=== PATIENT | male | born 1995 | race Caucasian/White ===

== ENCOUNTER 2016-12-09 10:50 | Emergency (ER) | payer MEDICAID, OTHER ==
--- NOTE | 2016-12-09 11:40 | EDM.PDOC ---
ED HPI GENERAL MEDICAL PROBLEM - General Chief Complaint: Genitourinary Problem Stated Complaint: Rash to groin Time Seen by Provider: 12/09/16 11:11 - History of Present Illness INITIAL COMMENTS - FREE TEXT/NARRATIVE: HISTORY AND PHYSICAL: History of present illness: The patient is a healthy 21-year-old male who presents with a three-day history of having a rash on the shaft of his penis and at the base which initially was not painful but now seems more uncomfortable and tender. According to the patient has had no systemic complaints of fever chills abdominal pain nausea or vomiting and has had no penile discharge no testicular swelling and no dysuria frequency urgency or hematuria. The patient states he's currently with his girlfriend only 4 months and has only had one prior partner. Patient says he always uses condoms for protection. The patient says he initially noticed the rash on visual inspection and it was located on the left side of the shaft of the penis and it seemed more red and flat-like in character. The rash seemed to spread around the shaft of the penis and he noticed some small bumps at the base of the penis. Patient says that he works on the [employer] and has to wear a lot of equipment and wears boxer shorts instead of briefs on a regular basis. Patient says he is not sure if his current girlfriend has any other partners and she has not had any issues that he is aware of. The patient does not shave his inguinal hair Review of systems: As per history of present illness and below otherwise all systems reviewed and negative. Past medical history: As per history of present illness and as reviewed below otherwise noncontributory. Surgical history: As per history of present illness and as reviewed below otherwise noncontributory. Social history: No reported history of drug or alcohol abuse. Family history: As per history of present illness and as reviewed below otherwise noncontributory. Physical exam: General: Well-developed well-nourished male who is nontoxic and benefits of the note by me HEENT: Atraumatic, normocephalic, negative for conjunctival pallor or scleral icterus, mucous membranes moist, throat clear, neck supple, nontender, trachea midline. Lungs: Clear to auscultation, breath sounds equal bilaterally, chest nontender. Heart: S1S2, regular, negative for clicks, rubs, or JVD. Abdomen: Soft, nondistended, nontender. Negative for masses or hepatosplenomegaly. Negative for costovertebral tenderness. Pelvis: Stable nontender. Genitourinary: Testicles are descended bilaterally and there is no evidence of any tenderness or swelling. There is bilateral inguinal adenopathy which is nontender and mobile left greater than right. There is a very flat plaque-like erythematous rash/maculopapular rash seen on the mid shaft of the penis circumferentially which does not exhibit any confluence. More at the base of the penis there are several punctate areas of pustule seen that are not definitely vesicular in character and there is no drainage or fluid that can be extracted. There are no flat like ulcerative lesions appreciated. The area in general is minimally tender and there are no masses appreciated. There is no penile drainage appreciated Rectal: Deferred. Extremities: Atraumatic, negative for cords or calf pain. Neurovascular unremarkable. Neuro: Awake, alert, oriented. Cranial nerves II through XII unremarkable. Cerebellum unremarkable. Motor and sensory unremarkable throughout. Exam nonfocal. Diagnostics: Urine for gonorrhea and Chlamydia Therapeutics: [] The patient and I talked at length about the character of this rash and that it seemed to be more attributed to sweating and boxer usage as well as a yeast like character. The small several pustules I see do not look herpetic-like/ vesicular in character but in light of his new partner and his concerns I will go ahead and give him a course of antiviral treatment and recommended that he followup for further testing for this possibility. There are no pustules that have enough fluid that can be extracted for topical testing and he is aware of this. I've advised him to wear tight briefs while at work and will also give him nystatin powder to keep the area more clean and dry in hopes to eradicate the rash. I will give him followup with family practice in urology to continue this workup as an outpatient. Impression: Inguinal/penile rash Definitive disposition and diagnosis as appropriate pending reevaluation and review of above. genitail region Pain Score (Numeric/FACES): 8 - Related Data Allergies Allergy/AdvReac Type Severity Reaction Status Date / Time No Known Allergies Allergy Verified 12/09/16 10:57 Home Meds: Home Meds . [No Known Home Meds] 07/16/16 [History] Past Medical History - Past Health History Medical/Surgical History: Denies Medical/Surgical History Neurological History: Reports: Other (see below) Other Neuro History: h/o ADHD, Autism Psychiatric History: Reports: None - Infectious Disease History Infectious Disease History: Reports: None Social & Family History - Family History Family Medical History: Noncontributory - Tobacco Use Smoking Status *Q: Current Every Day Smoker Years of Tobacco use: 1 Packs/Tins Daily: 1 Used Tobacco, but Quit: No Second Hand Smoke Exposure: Yes - Caffeine Use Caffeine Use: Reports: Coffee, Energy drinks, Soda Other Caffeine Use: 1 soda a day - Recreational Drug Use Recreational Drug Use: No ED ROS GENERAL - Review of Systems Review Of Systems: ROS reveals no pertinent complaints other than HPI. ED EXAM, GENERAL - Physical Exam Exam: See Below (See dictation) Course - Vital Signs Last Recorded V/S: Last Vital Signs Temp 36.8 C 12/09/16 10:57 Pulse 77 12/09/16 10:57 Resp 16 12/09/16 10:57 BP 131/73 12/09/16 10:57 Pulse Ox 99 12/09/16 10:57 - Orders/Labs/Meds Orders: Active Orders 24 hr Category Date Time Status CHLAMYDIA TRACHOMATIS/GC AMPLF Stat Lab 12/09/16 11:32 Ordered Departure - Departure Time of Disposition: 11:40 Disposition: Home, Self-Care 01 Condition: good Clinical Impression: Rash of groin Forms: ED Department Discharge Additional Instructions: The following information is given to patients seen in the emergency department who are being discharged to home. This information is to outline your options for follow-up care. We provide all patients seen in our emergency department with a follow-up referral. The need for follow-up, as well as the timing and circumstances, are variable depending upon the specifics of your emergency department visit. If you don't have a primary care physician on staff, we will provide you with a referral. We always advise you to contact your personal physician following an emergency department visit to inform them of the circumstance of the visit and for follow-up with them and/or the need for any referrals to a consulting specialist. The emergency department will also refer you to a specialist when appropriate. This referral assures that you have the opportunity for followup care with a specialist. All of these measure are taken in an effort to provide you with optimal care, which includes your followup. Under all circumstances we always encourage you to contact your private physician who remains a resource for coordinating your care. When calling for followup care, please make the office aware that this follow-up is from your recent emergency room visit. If for any reason you are refused follow-up, please contact the emergency department at and ask to speak to the emergency department charge nurse. [facility] Primary care- Internal Medicine and Family [facility] [address] [place] [id number] [facility] Specialty Care-Urology [address] [place] [id number] Please use all medications as prescribed. Use mild soap and water to cleanse area pat dry and apply the powder as prescribed. Please wear tight briefs while you're a work to prevent excessive sweating in the area. Please call and followup with primary care and/or urology as we discussed in the next few days. Return to ER as needed as discussed. With The other testing that was performed here today, you'll be called if the testing is positive otherwise she will not be contacted if it is negative - My Orders Last 24 Hours: My Active Orders 12/09/16 11:32 CHLAMYDIA TRACHOMATIS/GC AMPLF Stat - Assessment/Plan Last 24 Hours: My Active Orders 12/09/16 11:32 CHLAMYDIA TRACHOMATIS/GC AMPLF Stat
[2016-12-09 11:57] VITALS: BP 120/67
== END 2016-12-09 11:55 | disposition home or self-care (01) ==
LOC: MW.ED 10:50
DX: R21 Rash and other nonspecific skin eruption (principal); F90.9 Attention-deficit hyperactivity disorder, unspecified type; F17.210 Nicotine dependence, cigarettes, uncomplicated
CPT/HCPCS: 87491; 87591; 99283

== ENCOUNTER 2018-04-15 19:42 | Emergency (ER) | payer OTHER, MEDICAID ==
--- NOTE | 2018-04-15 20:01 | EDM.PDOC ---
ED HPI GENERAL MEDICAL PROBLEM - General Chief Complaint: Lower Extremity Injury/Pain Stated Complaint: SOMETHING LANDED ON RIGHT FOOT Time Seen by Provider: 04/15/18 19:47 Source of Information: Reports: Patient History Limitations: Reports: No Limitations - History of Present Illness INITIAL COMMENTS - FREE TEXT/NARRATIVE: HISTORY AND PHYSICAL: History of present illness: Patient is a 22-year-old male who presents to the emergency room today with complaints of right anterior foot pain. Patient states that while at work a piece of equipment had fallen to the top of his foot. Since that time he has had pain with movement or weightbearing. Denies any previous injury or trauma to the affected extremity. Review of systems: As per history of present illness and below otherwise all systems reviewed and negative. Past medical history: As per history of present illness and as reviewed below otherwise noncontributory. Surgical history: As per history of present illness and as reviewed below otherwise noncontributory. Social history: No reported history of drug or alcohol abuse. Family history: As per history of present illness and as reviewed below otherwise noncontributory. Physical exam: General: Well-developed and well-nourished 22-year-old male. Alert and oriented. Nontoxic appearing and in no acute distress. HEENT: Atraumatic, normocephalic, pupils equal and reactive bilaterally, negative for conjunctival pallor or scleral icterus, mucous membranes moist, throat clear, neck supple, nontender, trachea midline. No drooling or trismus noted. No meningeal signs Lungs: Clear to auscultation, breath sounds equal bilaterally, chest nontender. Heart: S1S2, regular rate and rhythm without overt murmur Abdomen: Soft, nondistended, nontender. Negative for masses or hepatosplenomegaly. Negative for costovertebral tenderness. Pelvis: Stable nontender. Genitourinary: Deferred. Rectal: Deferred. Skin: Intact, warm, dry. No lesions or rashes noted. Extremities: Moves all per self without deficits, tenderness with palpation over the anterior foot. No lateral or medial malleolus tenderness with palpation. Does have full range of motion. Increased pain with weight bearing. He is negative for cords or calf pain. Neurovascular unremarkable. Neuro: Awake, alert, oriented. Cranial nerves II through XII unremarkable. Cerebellum unremarkable. Motor and sensory unremarkable throughout. Exam nonfocal. Notes: Survey shows no evidence of fracture or dislocation. This information was shared with the patient. We'll place him with an Girma wrap and crutches for comfort purposes. Supportive care measures were reviewed and discussed. Patient voices understanding and is agreeable to plan of care. Denies any further questions or concerns at this time. Diagnostics: Xray right foot Therapeutics: Ice, Elevate Prescription: Tramadol #10 Impression: Crush Injury, Right Foot Plan: 1. Rest, ice, elevate the affected extremity. Use the Girma wrap and crutches as needed for comfort. 2. Tylenol and/or ibuprofen as needed for pain management. Tramadol for moderate to severe pain. This medication may cause drowsiness a do not take it will driving her needing to be functioning outside of the house. 3. 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 Return to the ED as needed and as discussed. Definitive disposition and diagnosis as appropriate pending reevaluation and review of above. - Related Data Allergies Allergy/AdvReac Type Severity Reaction Status Date / Time No Known Allergies Allergy Verified 04/15/18 20:06 Home Meds: Home Meds traMADol [Ultram] 50 mg PO Q4H PRN #10 tab 04/15/18 [Rx] Past Medical History - Past Health History Medical/Surgical History: Denies Medical/Surgical History Neurological History: Reports: Other (See Below) Other Neuro History: h/o ADHD, Autism Psychiatric History: Reports: None - Infectious Disease History Infectious Disease History: Reports: None Social & Family History - Family History Family Medical History: Noncontributory - Caffeine Use Caffeine Use: Reports: Coffee, Energy Drinks, Soda Other Caffeine Use: 1 soda a day Review of Systems - Review of Systems Review Of Systems: ROS reveals no pertinent complaints other than HPI. ED EXAM, GENERAL - Physical Exam Exam: See Below (See dictation) Course - Vital Signs Last Recorded V/S: Last Vital Signs Temp 99 F 04/15/18 20:04 Pulse 78 04/15/18 20:04 Resp 16 04/15/18 20:04 BP 152/72 H 04/15/18 20:04 Pulse Ox 97 04/15/18 20:04 - Orders/Labs/Meds Orders: Active Orders 24 hr Category Date Time Status Foot 2V Rt [CR] Stat Exams 04/15/18 19:58 Ordered DME for Discharge [COMM] Stat Oth 04/15/18 20:33 Ordered Departure - Departure Time of Disposition: 20:40 Disposition: Home, Self-Care 01 Clinical Impression: Crush injury of right foot Qualifiers: Encounter type: initial encounter Qualified Code(s): S97.81XA - Crushing injury of right foot, initial encounter - Discharge Information Prescriptions: traMADol [Ultram] 50 mg PO Q4H PRN #10 tab PRN Reason: Pain Instructions: Crush Injury of the Foot, [id number] Referrals: PCP,None [Primary Care Provider] - Forms: ED Department Discharge Additional Instructions: The following information is given to patients seen in the emergency department who are being discharged to home. This information is to outline your options for follow-up care. We provide all patients seen in our emergency department with a follow-up referral. The need for follow-up, as well as the timing and circumstances, are variable depending upon the specifics of your emergency department visit. If you don't have a primary care physician on staff, we will provide you with a referral. We always advise you to contact your personal physician following an emergency department visit to inform them of the circumstance of the visit and for follow-up with them and/or the need for any referrals to a consulting specialist. The emergency department will also refer you to a specialist when appropriate. This referral assures that you have the opportunity for follow-up care with a specialist. All of these measure are taken in an effort to provide you with optimal care, which includes your follow-up. Under all circumstances we always encourage you to contact your private physician who remains a resource for coordinating your care. When calling for follow-up care, please make the office aware that this follow-up is from your recent emergency room visit. If for any reason you are refused follow-up, please contact the [facility] Emergency Department at and asked to speak to the emergency department charge nurse. [facility] Primary Care [address] [place] [id number] 1. Rest, ice, elevate the affected extremity. Use the Girma wrap and crutches as needed for comfort. 2. Tylenol and/or ibuprofen as needed for pain management. Tramadol for moderate to severe pain. This medication may cause drowsiness a do not take it will driving her needing to be functioning outside of the house. 3. 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 Return to the ED as needed and as discussed. - My Orders Last 24 Hours: My Active Orders 04/15/18 19:58 Foot 2V Rt [CR] Stat 04/15/18 20:33 DME for Discharge [COMM] Stat - Assessment/Plan Last 24 Hours: My Active Orders 04/15/18 19:58 Foot 2V Rt [CR] Stat 04/15/18 20:33 DME for Discharge [COMM] Stat
[2018-04-15 20:13] VITALS: BP 152/72
--- NOTE | 2018-04-16 10:28 | CR ---
EXAM DATE: 04/15/18 PATIENT'S AGE: 22 Patient: DARREN WOLFF Facility: [place], [place] Site . Site : 1995 Study: XRay Extremity Right foot [id number]/10/2018 8:13:27 PM Ordering Physician: Doctor Mascorro Final Report: INDICATION: Pain. TECHNIQUE: Three views right foot. FINDINGS: Small lucencies in the right 2nd through 5th metatarsal heads nonspecific. Mild narrowing of the right 1st MTP joint. No fracture or dislocation in right foot. Dictated by Calvin Ulloa MD @ Apr 15 2018 8:15PM (Electronic Signature) Report Signed by Proxy. BRADY
== END 2018-04-15 21:20 | disposition home or self-care (01) ==
LOC: MW.ED 19:42
DX: S97.81XA Crushing injury of right foot, initial encounter (principal); W20.8XXA Other cause of strike by thrown, projected or falling object, initial encounter
CPT/HCPCS: 73620-26-RT; 73620-RT; 99283

== ENCOUNTER 2018-09-20 23:32 | Emergency (ER) | payer OTHER ==
[2018-09-20] MEDS ORDERED: Tetracaine HCl/PF 0.5% 4 ML Bottle ONE (23:42)
[2018-09-20] MEDS ORDERED: Tetracaine HCl/PF 0.5% 4 ML Bottle EYEBOTH ONE (23:43)
[2018-09-20] MEDS ORDERED: Acetaminophen/HYDROcodone 325-10 MG Tab PO ONE (23:44)
[2018-09-20] MEDS ORDERED: Erythromycin Base 0.5% Ophth Oint 1 GM Tube EYEBOTH ONE (23:57)
--- NOTE | 2018-09-21 00:04 | EDM.PDOC ---
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 Past medical history: As per history of present illness and as reviewed below otherwise noncontributory. Surgical history: As per history of present illness and as reviewed below otherwise noncontributory. Social history: No reported history of drug or alcohol abuse. Family history: As per history of present illness and as reviewed below otherwise noncontributory. Physical exam: HEENT: Atraumatic, normocephalic, pupils reactive, mild injected by lateral conjunctiva anterior chamber clear no foreign body no evidence of corneal abrasion negative for conjunctival pallor or scleral icterus, mucous membranes moist, throat clear, neck supple, nontender, trachea midline. Lungs: Clear to auscultation, breath sounds equal bilaterally, chest nontender. Heart: S1S2, regular, negative for clicks, rubs, or JVD. Abdomen: Soft, nondistended, nontender. Negative for masses or hepatosplenomegaly. Negative for costovertebral tenderness. Pelvis: Stable nontender. Genitourinary: Deferred. Rectal: Deferred. Extremities: Atraumatic, negative for cords or calf pain. Neurovascular unremarkable. Neuro: Awake, alert, oriented. Cranial nerves II through XII unremarkable. Cerebellum unremarkable. Motor and sensory unremarkable throughout. Exam nonfocal. Diagnostics: None Therapeutics: Tetracaine ophthalmic drops erythromycin ophthalmic ointment double patch Impression: #1 ultraviolet keratitis Definitive disposition and diagnosis as appropriate pending reevaluation and review of above. Bilateral Eye Pain Score (Numeric/FACES): 8 - Related Data Allergies Allergy/AdvReac Type Severity Reaction Status Date / Time No Known Allergies Allergy Verified 09/20/18 23:47 Home Meds: Home Meds . [No Known Home Meds] 07/31/18 [History] Past Medical History - Past Health History Medical/Surgical History: Denies Medical/Surgical History Neurological History: Reports: Other (See Below) Other Neuro History: h/o ADHD, Autism Psychiatric History: Reports: None - Infectious Disease History Infectious Disease History: Reports: None Social & Family History - Family History Family Medical History: Noncontributory - Caffeine Use Caffeine Use: Reports: Coffee, Energy Drinks, Soda Other Caffeine Use: 1 soda a day ED ROS GENERAL - Review of Systems Review Of Systems: ROS reveals no pertinent complaints other than HPI. ED EXAM GENERAL W FULL EYE - Physical Exam Exam: See Below (See dictation) Course - Vital Signs Last Recorded V/S: Last Vital Signs Temp 36.6 C 09/20/18 23:44 Pulse 81 09/20/18 23:44 Resp 16 09/20/18 23:44 BP 153/88 H 09/20/18 23:44 Pulse Ox 98 09/20/18 23:44 - Orders/Labs/Meds Meds: Medications Discontinued Medications Generic Name Dose Route Start Last Admin Trade Name Freq PRN Reason Stop Dose Admin Hydrocodone Bitart/Acetaminophen 1 tab 09/20/18 23:44 Dema 325-10 Mg PO 09/20/18 23:45 ONETIME ONE Tetracaine HCl 1 ml 09/20/18 23:43 Tetracaine 0.5% Steri-Unit Britney EYEBOTH 09/20/18 23:44 ASDIRECTED ONE Tetracaine HCl Confirm 09/20/18 23:42 Tetracaine 0.5% Steri-Unit Britney Administered 09/20/18 23:43 Dose 4 ml .ROUTE .STK-MED ONE Departure - Departure Time of Disposition: 00:04 Disposition: Home, Self-Care 01 Condition: Good Clinical Impression: Ultraviolet keratitis - Discharge Information Referrals: Sybil Tejada MD [Primary Care Provider] - Additional Instructions: The following information is given to patients seen in the emergency department who are being discharged to home. This information is to outline your options for follow-up care. We provide all patients seen in our emergency department with a follow-up referral. The need for follow-up, as well as the timing and circumstances, are variable depending upon the specifics of your emergency department visit. If you don't have a primary care physician on staff, we will provide you with a referral. We always advise you to contact your personal physician following an emergency department visit to inform them of the circumstance of the visit and for follow-up with them and/or the need for any referrals to a consulting specialist. The emergency department will also refer you to a specialist when appropriate. This referral assures that you have the opportunity for followup care with a specialist. All of these measure are taken in an effort to provide you with optimal care, which includes your followup. Under all circumstances we always encourage you to contact your private physician who remains a resource for coordinating your care. When calling for followup care, please make the office aware that this follow-up is from your recent emergency room visit. If for any reason you are refused follow-up, please contact the [facility] emergency department at and asked to speak to the emergency department charge nurse. [facility] [address] [place] [id number] Hydrocodone as prescribed double patch as directed erythromycin ophthalmic ointment as discussed follow-up ophthalmology as needed as discussed and return as needed as discussed
[2018-09-21 00:08] VITALS: BP 154/81
== END 2018-09-21 00:19 | disposition home or self-care (01) ==
LOC: MW.ED 23:32
DX: H16.133 Photokeratitis, bilateral (principal)
CPT/HCPCS: 99283; A9270

== ENCOUNTER 2020-03-08 23:24 | Emergency (ER) | payer OTHER ==
--- NOTE | 2020-03-08 23:38 | EDM.PDOC ---
ED HPI GENERAL MEDICAL PROBLEM - General Stated Complaint: tooth ache Time Seen by Provider: 03/08/20 23:29 - History of Present Illness INITIAL COMMENTS - FREE TEXT/NARRATIVE: History of present illness: [] Patient has a toothache for a month. It is becoming unbearable. Some tooth #17. It is a broken off wisdom tooth. He has not been trying to fill it. He has been taking ibuprofen. Is not helping. He does not have any fever chills or systemic signs of infection. Patient has no history of heart murmur. He has access to a dentist but the dentist booked up for quite some time. Review of systems: As per history of present illness and below otherwise all systems reviewed and negative. Past medical history: As per history of present illness and as reviewed below otherwise noncontributory. Surgical history: As per history of present illness and as reviewed below otherwise noncontributory. Social history: No reported history of drug or alcohol abuse. Family history: As per history of present illness and as reviewed below otherwise noncontributory. Physical exam: Constitutional - well developed, well-nourished and in no acute distress HEENT - normocephalic, no evidence of trauma - external nose and mouth normal - no mass in neck and no JVD - mucosae moist. Has no trismus. Patient has normal voice. Patient handles his own saliva. The patient has a broken off and carious tooth #17. It is partially buried in gingiva. There is local inflammation. EYES - full EOM, PERRL, no icterus - no evidence of inflammation, injection, or drainage Respiratory - no respiratory distress, equal bilateral expansion Cardiovascular - Regular Rhythm with S1 and S2 appreciated and no murmur, gallop or rub. Musculoskeletal no gross deformity of long bones or joints - no tenderness, swelling or edema Neurologic - Alert and oriented times four - CN II-XII grossly intact - motor sensory and coordination symmetrically normal Psychiatric - appropriate mood and affect with normal thought content Hematologic - No petechiae or purpura - mucosa appropriate color and sclera not pale - normal nail bed color and refill Integument - no rash or evidence of trauma - normal turgor Diagnostics: [] Therapeutics: [] Impression: Dental disease. Broken tooth. [] Plan: [] Definitive disposition and diagnosis as appropriate pending reevaluation and review of above. - Related Data Allergies Allergy/AdvReac Type Severity Reaction Status Date / Time No Known Allergies Allergy Verified 03/08/20 23:42 Home Meds: Home Meds Acetaminophen with Codeine [Tylenol with Codeine #3 Tablet] 2 each PO Q4HR PRN #14 tablet 03/08/20 [Rx] Penicillin V Potassium [Veetids] 500 mg PO Q12HR #20 tab 03/08/20 [Rx] Past Medical History - Past Health History Medical/Surgical History: Denies Medical/Surgical History HEENT History: Reports: None Cardiovascular History: Reports: None Respiratory History: Reports: None Gastrointestinal History: Reports: None Genitourinary History: Reports: None Musculoskeletal History: Reports: None Neurological History: Reports: Other (See Below) Other Neuro History: h/o ADHD, Autism Psychiatric History: Reports: None Endocrine/Metabolic History: Reports: None Hematologic History: Reports: None Immunologic History: Reports: None Oncologic (Cancer) History: Reports: None Dermatologic History: Reports: None - Infectious Disease History Infectious Disease History: Reports: None - Past Surgical History Head Surgeries/Procedures: Reports: None Social & Family History - Family History Family Medical History: Noncontributory - Caffeine Use Caffeine Use: Reports: Coffee, Energy Drinks, Soda Other Caffeine Use: 1 soda a day ED ROS GENERAL - Review of Systems Review Of Systems: Comprehensive ROS is negative, except as noted in HPI. ED EXAM, GENERAL - Physical Exam Exam: See Below Free Text/Narrative:: My physical exam as in the HPI Departure - Departure Time of Disposition: 23:46 Disposition: Home, Self-Care 01 Clinical Impression: Periodontal disease, Broken tooth - Discharge Information Instructions: Dental Extraction, [id number], Preventive Dental Care, Adult Additional Instructions: The following information is given to patients seen in the emergency department who are being discharged to home. This information is to outline your options for follow-up care. We provide all patients seen in our emergency department with a follow-up referral. The need for follow-up, as well as the timing and circumstances, are variable depending upon the specifics of your emergency department visit. If you don't have a primary care physician on staff, we will provide you with a referral. We always advise you to contact your personal physician following an emergency department visit to inform them of the circumstance of the visit and for follow-up with them and/or the need for any referrals to a consulting specialist. The emergency department will also refer you to a specialist when appropriate. This referral assures that you have the opportunity for follow-up care with a specialist. All of these measure are taken in an effort to provide you with optimal care, which includes your follow-up. Under all circumstances we always encourage you to contact your private physician who remains a resource for coordinating your care. When calling for follow-up care, please make the office aware that this follow-up is from your recent emergency room visit. If for any reason you are refused follow-up, please contact the [facility] Emergency Department at and asked to speak to the emergency department charge nurse. You can fill the hole in the tooth with melted wax from nontoxic birthday candle or artificial feeling you can buy at the pharmacy. Make a follow-up appointment with your dentist. [facility] [address] [place] [address] [id number] [address] [address]
[2020-03-08] MEDS ORDERED: Penicillin V Potassium 500 MG Tab PO STA (23:40)
[2020-03-09 00:11] VITALS: BP 125/81; PULSE 81
== END 2020-03-09 00:04 | disposition home or self-care (01) ==
LOC: MW.ED 23:24
DX: K05.6 Periodontal disease, unspecified (principal); K03.81 Cracked tooth; K02.9 Dental caries, unspecified; F84.0 Autistic disorder
CPT/HCPCS: 99282; A9270

== ENCOUNTER 2020-03-25 04:27 | Emergency (ER) | payer OTHER ==
[2020-03-25 04:42] VITALS: PULSE 62
--- NOTE | 2020-03-25 04:48 | EDM.PDOC ---
ED HPI GENERAL MEDICAL PROBLEM - General Chief Complaint: General Stated Complaint: TOOTH PAIN, CHEST PAIN, RIGHT ARM NUMB Time Seen by Provider: 03/25/20 04:29 Source of Information: Reports: Patient History Limitations: Reports: No Limitations - History of Present Illness INITIAL COMMENTS - FREE TEXT/NARRATIVE: History of present illness: [Patient is 24-year-old male who presents with palpitations and left arm paresthesias. He states that he has been dealing with some chronic tooth pain for which he takes Tylenol 3 with codeine, he was having some tooth pain around 2 AM so he took a tablet and then went out to his truck to grab a cigarette and while he was out there he developed some pain and tingling sensation radiating from the medial aspect of his elbow and forearm towards his pinky and ring finger. At the same time he also said he was feeling like his heart was beating stronger than normal and he was more aware of his heartbeat and was experiencing palpitations. Currently denies feeling any palpitations, no chest pain, no shortness of breath. He states that when he went to bed last night he was feeling fine, denies any recent URI, fever, abdominal pain, vomiting, diarrhea.] Review of systems: As per history of present illness and below otherwise all systems reviewed and negative. Past medical history: As per history of present illness and as reviewed below otherwise noncontributory. Surgical history: As per history of present illness and as reviewed below otherwise noncontributory. Social history: No reported history of drug or alcohol abuse. Family history: As per history of present illness and as reviewed below otherwise noncontributory. Physical exam: General: Awake, alert, no acute distress, A&O X3. HEENT: Atraumatic, normocephalic, pupils reactive, negative for conjunctival pallor or scleral icterus, mucous membranes moist, throat clear, neck supple, nontender, trachea midline. Lungs: Clear to auscultation, breath sounds equal bilaterally, chest nontender. Heart: RRR, normal S1S2, no JVD. Abdomen: Soft, nondistended, nontender. Negative for masses or hepatosplenomegaly. Negative for costovertebral tenderness. Pelvis: Stable nontender. Genitourinary: Deferred. Rectal: Deferred. Extremities: Atraumatic, no edema, Neurovascular unremarkable. Neuro: Motor and sensory grossly intact throughout. Exam nonfocal. Diagnostics: [] Therapeutics: [] Impression: [] Plan: [] Definitive disposition and diagnosis as appropriate pending reevaluation and review of above. tooth Pain Score (Numeric/FACES): 6 - Related Data Allergies Allergy/AdvReac Type Severity Reaction Status Date / Time No Known Allergies Allergy Verified 03/25/20 04:37 Home Meds: Home Meds Acetaminophen with Codeine [Tylenol with Codeine #3 Tablet] 2 each PO Q4HR PRN #14 tablet 03/08/20 [Rx] Past Medical History - Past Health History Medical/Surgical History: Denies Medical/Surgical History HEENT History: Reports: None Cardiovascular History: Reports: None Respiratory History: Reports: None Gastrointestinal History: Reports: None Genitourinary History: Reports: None Musculoskeletal History: Reports: None Neurological History: Reports: Other (See Below) Other Neuro History: h/o ADHD, Autism Psychiatric History: Reports: None Endocrine/Metabolic History: Reports: None Hematologic History: Reports: None Immunologic History: Reports: None Oncologic (Cancer) History: Reports: None Dermatologic History: Reports: None - Infectious Disease History Infectious Disease History: Reports: None - Past Surgical History Head Surgeries/Procedures: Reports: None Social & Family History - Family History Family Medical History: Noncontributory - Tobacco Use Smoking Status *Q: Current Every Day Smoker Years of Tobacco use: 4 Packs/Tins Daily: 1 - Caffeine Use Caffeine Use: Reports: Coffee, Energy Drinks, Soda Other Caffeine Use: 1 soda a day - Recreational Drug Use Recreational Drug Use: No ED ROS GENERAL - Review of Systems Review Of Systems: Comprehensive ROS is negative, except as noted in HPI. ED EXAM, GENERAL - Physical Exam Exam: See Below (see h and p) EKG INTERPRETATION EKG Date: 03/25/20 Time: 04:34 Rhythm: NSR Rate (Beats/Min): 59 [place]: Normal P-Wave: Present QRS: Normal ST-T: Normal QT: Normal Course - Vital Signs Text/Narrative:: Patient has stable vital signs,PERC negative, not tachycardic or tachypneic. EKG unremarkable. Chest x-ray clear. I do not believe lab work is indicated at this time. He is otherwise young and healthy. I told him if he continued to have intermittent palpitations that he should follow-up with his primary care doctor and discuss potentially wearing a Holter monitor to record these events while he is at home or work. But I do not believe he requires admission, labs, or other advanced testing or imaging at this time. He is stable, nontoxic, return precautions provided. Last Recorded V/S: Last Vital Signs Temp 36.2 C 03/25/20 04:38 Pulse 62 03/25/20 04:38 Resp 16 03/25/20 04:38 BP 137/68 03/25/20 04:38 Pulse Ox 97 03/25/20 04:38 Departure - Departure Time of Disposition: 05:13 Disposition: Home, Self-Care 01 Condition: Good Clinical Impression: Palpitations - Discharge Information Instructions: [facility]ations [facility] - Forms: ED Department Discharge Additional Instructions: Follow-up with primary care doctor. Return to the ER with any new or worsening symptoms. The following information is given to patients seen in the emergency department who are being discharged to home. This information is to outline your options for follow-up care. We provide all patients seen in our emergency department with a follow-up referral. The need for follow-up, as well as the timing and circumstances, are variable depending upon the specifics of your emergency department visit. If you don't have a primary care physician on staff, we will provide you with a referral. We always advise you to contact your personal physician following an emergency department visit to inform them of the circumstance of the visit and for follow-up with them and/or the need for any referrals to a consulting specialist. The emergency department will also refer you to a specialist when appropriate. This referral assures that you have the opportunity for follow-up care with a specialist. All of these measure are taken in an effort to provide you with optimal care, which includes your follow-up. Under all circumstances we always encourage you to contact your private physician who remains a resource for coordinating your care. When calling for follow-up care, please make the office aware that this follow-up is from your recent emergency room visit. If for any reason you are refused follow-up, please contact the [facility] Emergency Department at and asked to speak to the emergency department charge nurse. Sepsis Event Note (ED) - Evaluation Sepsis Screening Result: No Definite Risk - Focused Exam Vital Signs: Vital Signs Temp Pulse Resp BP Pulse Ox 03/25/20 04:38 36.2 C 62 16 137/68 97
--- NOTE | 2020-03-25 05:07 | CR ---
Indication: Palpitation Technique: Chest 1 view Comparison: None Findings/Impression: Cardiovascular and mediastinum: Heart size and vasculature are normal in caliber and appearance. Mediastinum is within normal limits. Lungs and pleural space: Lungs are clear. No sign of infiltrate or mass. No sign of pleural effusion. No pneumothorax. Bones and soft tissues: No significant findings. Dictated by Renetta Keys MD @ Mar 25 2020 5:06AM Signed by Dr. Renetta Keys @ Mar 25 2020 5:06AM
[2020-03-25 05:27] VITALS: BP 131/79
== END 2020-03-25 05:24 | disposition home or self-care (01) ==
LOC: MW.ED 04:27
DX: R00.2 Palpitations (principal); F17.210 Nicotine dependence, cigarettes, uncomplicated; F84.0 Autistic disorder
CPT/HCPCS: 71045; 71045-26; 93005; 99282; 99285-25

== ENCOUNTER 2022-02-01 09:19 | Emergency (ER) | payer OTHER ==
[2022-02-01] MEDS ORDERED: Ketorolac 30 MG/ML SDV IM ONE (09:40)
[2022-02-01 10:45] VITALS: BP 118/79; PULSE 81
== END 2022-02-01 10:39 | disposition home or self-care (01) ==
LOC: MW.ED 09:19
DX: R07.89 Other chest pain (principal); Z72.0 Tobacco use
CPT/HCPCS: 71046; 93005; 96372; 99284; J1885

== ENCOUNTER 2022-04-10 17:05 | Emergency (ER) | payer OTHER ==
[2022-04-10] MEDS ORDERED: Amoxicillin/Clavulanate K 875-125 MG Tab PO ONE (18:54)
[2022-04-10] MEDS ORDERED: Mupirocin Oint 22 GM Tube TOP ONE (18:54)
[2022-04-10 19:48] VITALS: BP 131/87; PULSE 87
== END 2022-04-10 19:48 | disposition home or self-care (01) ==
LOC: MW.ED 17:05
DX: L01.00 Impetigo, unspecified (principal)
CPT/HCPCS: 99282; A9270

== ENCOUNTER 2022-08-13 15:26 | Emergency (ER) | payer OTHER ==
[2022-08-13 16:14] VITALS: BP 126/72
[2022-08-13] MEDS ORDERED: Acetaminophen 325 MG Tab PO ONE (16:29)
[2022-08-13] MEDS ORDERED: Ketorolac 30 MG/ML SDV IVPUSH ONE (16:29)
[2022-08-13] MEDS ORDERED: Lactated Ringers 1,000 ML IV ONE (16:29)
[2022-08-13] MEDS ORDERED: Dexamethasone 10 MG/ML SDV PO ONE (16:29)
[2022-08-13] MEDS ORDERED: Metoclopramide 10 MG/2 ML SDV IVPUSH ONE (16:30)
[2022-08-13 17:50] LABS: CORONAVIRUS COVID-19 NAA NEGATIVE (NEGATIVE); INFLUENZA A NAA POSITIVE (NEGATIVE); INFLUENZA B NAA NEGATIVE (NEGATIVE); RESPIRATORY SYNCYTIAL VIR NAA NEGATIVE (NEGATIVE)
[2022-08-13 18:39] VITALS: PULSE 75
== END 2022-08-13 18:36 | disposition home or self-care (01) ==
LOC: MW.ED 15:26
DX: J11.1 Influenza due to unidentified influenza virus with other respiratory manifestations (principal); Z20.822 Contact with and (suspected) exposure to COVID-19
CPT/HCPCS: 0241U; 96361; 96374; 96375; 99284; A9270; J1885; J2765; J7120; J8540

== ENCOUNTER 2023-03-04 08:59 | Emergency (ER) | payer OTHER ==
[2023-03-04 09:14] VITALS: BP 147/95; PULSE 78
== END 2023-03-04 09:18 | disposition home or self-care (01) ==
LOC: MW.ED 08:59
DX: B35.6 Tinea cruris (principal); F17.210 Nicotine dependence, cigarettes, uncomplicated
CPT/HCPCS: 99282; 99283

== ENCOUNTER 2023-11-14 09:46 | Emergency (ER) | payer OTHER ==
[2023-11-14] MEDS: Ibuprofen 600 MG Tab PO ONE (10:15)
[2023-11-14] MEDS: Acetaminophen 325 MG Tab PO ONE (10:15)
[2023-11-14 10:51] VITALS: BP 138/87; PULSE 78
== END 2023-11-14 10:52 | disposition home or self-care (01) ==
LOC: MW.ED 09:46
DX: M25.572 Pain in left ankle and joints of left foot (principal); Z75.8 Other problems related to medical facilities and other health care
CPT/HCPCS: 73610; 99283; A9270

== ENCOUNTER 2024-04-14 09:14 | Emergency (ER) | payer OTHER ==
[2024-04-14 09:21] VITALS: BP 154/93
[2024-04-14] MEDS: Sodium Chloride 0.9% 1,000 ML IV ONE (09:25)
[2024-04-14 09:27] VITALS: PULSE 70
[2024-04-14 09:28] LABS: BASOPHILS ABSOLUTE AUTO 0.03 K/uL (0.00-0.20); BASOPHILS PERCENT AUTO 0.6 % (0.0-1.0); EOSINOPHILS ABSOLUTE AUTO 0.11 K/uL (0.00-0.45); EOSINOPHILS PERCENT AUTO 2.2 % (0.0-6.0); HEMOGLOBIN 15.4 g/dL (14.0-18.0); IMMATURE GRAN ABSOLUTE AUTO 0.01 K/uL (0.00-0.05); IMMATURE GRAN PERCENT AUTO 0.2 % (0.0-0.4); LYMPHOCYTES ABSOLUTE AUTO 1.91 K/uL (1.00-4.80); MEAN CORPUSCULAR HEMOGLOBIN 30.9 pg (28.0-32.0); MEAN CORPUSCULAR VOLUME 88.2 fL (83.0-99.0); MEAN PLATELET VOLUME 9.8 fL (9.4-12.4); MONOCYTES ABSOLUTE AUTO 0.32 K/uL (0.00-0.80); MONOCYTES PERCENT AUTO 6.5 % (0.0-8.0); NEUTROPHILS ABSOLUTE AUTO 2.52 K/uL (1.80-7.70); NEUTROPHILS PERCENT AUTO 51.5 % (41.0-71.0); PLATELET COUNT,PLT 170 K/uL (150-400); RED BLOOD CELL COUNT 4.99 M/uL (4.52-5.90)
[2024-04-14 10:04] LABS: A/G RATIO 1.3 (0.9-1.6); BILIRUBIN TOTAL 0.3 mg/dL (0.2-1.0); CALCIUM 9.1 mg/dL (8.5-10.1); CARBON DIOXIDE,CO2 29.7 mmol/L (21.0-32.0); EST CRCL DRUG DOSING (CG) 131.44 mL/min; POTASSIUM,K 4.1 mmol/L (3.5-5.1); PROTEIN TOTAL,TP 7.1 g/dL (6.4-8.2); TSH ULTRASENSITIVE 2.36 uIU/mL (0.36-3.74)
[2024-04-14 10:48] LABS: APPEARANCE,URINE CLEAR; BILIRUBIN,URINE NEGATIVE (NEGATIVE); COLOR,URINE YELLOW; GLUCOSE,URINE NEGATIVE (NEGATIVE); KETONES,URINE NEGATIVE (NEGATIVE); LEUKOCYTE ESTERASE,URINE NEGATIVE (NEGATIVE); NITRITE,URINE NEGATIVE (NEGATIVE); OCCULT BLOOD,URINE NEGATIVE (NEGATIVE); PROTEIN,URINE NEGATIVE (NEGATIVE); UROBILINOGEN,URINE 0.2 EU/dL (<2.0)
== END 2024-04-14 11:31 | disposition home or self-care (01) ==
LOC: MW.ED 09:14
DX: R07.89 Other chest pain (principal); F17.210 Nicotine dependence, cigarettes, uncomplicated; Z75.8 Other problems related to medical facilities and other health care
CPT/HCPCS: 36415; 71045; 80053; 81003; 84443; 84484; 85025; 96360; 99285; J7030; 93010; 99284